=== PATIENT | male | born 1945 | race Caucasian/White ===

== ENCOUNTER 2018-10-23 11:46 | Day surgery (SDC) | payer MEDICARE, OTHER ==
[2018-10-21 11:02] LABS: BASOPHILS # (AUTO) 0.1 X10'3 (0-0.2); EOSINOPHILS # (AUTO) 0.4 X10'3 (0-0.9); EOSINOPHILS % (AUTO) 6.3 % (0-6); HEMOGLOBIN 10.4 g/dl (14.0-17.9); LYMPHOCYTES # (AUTO) 1.3 X10'3 (1.1-4.8); LYMPHOCYTES % (AUTO) 21.5 % (21-51); MEAN CORPUSCULAR HEMOGLOBIN 20.5 PG (27.0-31.0); MEAN CORPUSCULAR HGB CONC 30.7 g/dL (33.0-36.5); MEAN CORPUSCULAR VOLUME 66.7 FL (78-98); MEAN PLATELET VOLUME 8.4 FL (7.4-10.4); MONOCYTES # (AUTO) 0.5 X10'3 (0-0.9); MONOCYTES % (AUTO) 7.6 % (2-12); NEUTROPHILS # (AUTO) 3.8 X10'3 (1.8-7.7); NEUTROPHILS % (AUTO) 63.6 % (42-75); PLATELET COUNT 219 X10'3 (140-440); RED CELL DISTRIBUTION WIDTH 16.3 % (11.5-14.5)
[2018-10-21 11:08] LABS: ALBUMIN 3.2 G/DL (3.4-5.0); ANION GAP 11 (8-16); BLOOD UREA NITROGEN 27 MG/DL (7-18); BUN/CREATININE RATIO 16.4 (5.4-32.0); CALCIUM 8.9 MG/DL (8.5-10.1); CHLORIDE 103 MMOL/L (99-107); CREATININE 1.65 MG/DL (0.60-1.10); GLUCOSE 216 MG/DL (70-104); POTASSIUM 4.4 MMOL/L (3.5-5.1); SODIUM 138 MMOL/L (135-145); TOTAL CARBON DIOXIDE 24.3 MMOL/L (24-32); eGFR 41 ML/MIN
[2018-10-21 11:17] LABS: PARTIAL THROMBOPLASTIN TIME 29 SECONDS (22-32)
[2018-10-21 12:06] LABS: PLATELET ESTIMATE NORMAL
[2018-10-21 12:07] LABS: ANISOCYTOSIS 1+; HYPOCHROMASIA 1+; LARGE PLATELETS FEW; MICROCYTOSIS 2+
[~2018-10-23] VITALS: Ht 172.7 cm; Wt 107.6 kg
[2018-10-23] VITALS (7 sets, daily range): BP systolic 160–175; BP diastolic 81–93
[2018-10-23] MEDS ORDERED: diphenhydrAMINE 25mg capsule PO PRN (12:00)
[2018-10-23] MEDS ORDERED: LORazepam 0.5 MG tablet PO PRN (12:00)
[2018-10-23] MEDS ORDERED: normal saline 1000ml 1,000 ML IV SCH (12:00)
[2018-10-23] MEDS ORDERED: METF500T7 PO (14:03)
[2018-10-23] MEDS ORDERED: FEBU40TA PO (14:03)
[2018-10-23] MEDS ORDERED: METO50TA7 PO (14:03)
[2018-10-23] MEDS ORDERED: HYDR-4069 PO (14:03)
[2018-10-23] MEDS ORDERED: CYAN100097 PO (14:03)
[2018-10-23] MEDS ORDERED: MAGN400T6 PO (14:03)
[2018-10-23] MEDS ORDERED: VALS320T17 PO (14:03)
[2018-10-23] MEDS ORDERED: ISOS30TA10 PO (14:03)
[2018-10-23] MEDS ORDERED: ASPI-1265 PO (14:03)
[2018-10-23] MEDS ORDERED: CHOL10002 PO (14:03)
[2018-10-23] MEDS ORDERED: fentaNYL/PF 50MCG/1 ML 2ML syringe ONE (15:37)
[2018-10-23] MEDS ORDERED: LIDOcaine 1% w/EPI 1:100,000 30ml vial (MDV) ONE (15:38)
[2018-10-23] MEDS ORDERED: midazolam 2 mg/2 ml injection ONE (15:38)
[2018-10-23] MEDS ORDERED: iohexol 350MG/ML 100ml bottle IV ONE (15:38)
[2018-10-23] MEDS ORDERED: LIDOcaine 1% (10mg/ml)w/preservative injection 20ml MDV ONE (15:51)
[2018-10-23] MEDS ORDERED: OXAZEpam 15mg capsule PO PRN (18:00)
[2018-10-23] MEDS ORDERED: ondansetron/PF 4mg/2ml inj IV PRN (18:00)
[2018-10-23] MEDS ORDERED: proCHLORperazine 10 MG/2 ml inj IV PRN (18:00)
[2018-11-08] MEDS ORDERED: METO50TA17 PO (11:33)
[2018-11-13] MEDS ORDERED: ATOR10TA PO (09:08)
== END 2018-10-23 19:50 | disposition home or self-care (01) ==
LOC: SSTAY O 11:46
PROVIDERS: ATTEND Internal Medicine Interventional Cardiology
DX: I25.10 Atherosclerotic heart disease of native coronary artery without angina pectoris (principal); I35.0 Nonrheumatic aortic (valve) stenosis
CPT/HCPCS: 36415; 80048; 82948; 85025; 85610; 85730; 93005; 93460; 99152; 99153; A6257; J1644; J2001; J2250; J3010; J3490; J7030; Q0163; Q9967; A4620; C1760; C1769

== ENCOUNTER 2018-11-07 05:14 | Inpatient (IN) | payer MEDICARE, OTHER | END 2018-11-13 11:55 | disposition home health service (06) | LOC: MED 3N 11-11 16:43 → PAS IN 05:14 → CICU 2S 09:46 | PROC: 0T9B70Z Drainage of Bladder with Drainage Device, Via Natural or Artificial Opening (ICD-10-PCS; principal; 2018-11-07 06:51) | PROC: 02U Heart and Great Vessels, Supplement (ICD-10-PCS; 2018-11-07 06:51) | PROC: 02100A3 Bypass Coronary Artery, One Artery from Coronary Artery with Autologous Arterial Tissue, Open Approach (ICD-10-PCS; 2018-11-07 06:51) | PROC: 0212099 Bypass Coronary Artery, Three Arteries from Left Internal Mammary with Autologous Venous Tissue, Open Approach (ICD-10-PCS; 2018-11-07 06:51) | PROC: 06BQ4ZZ Excision of Left Saphenous Vein, Percutaneous Endoscopic Approach (ICD-10-PCS; 2018-11-07 06:51) | DX: I25.10 Atherosclerotic heart disease of native coronary artery without angina pectoris (principal); N17.0 Acute kidney failure with tubular necrosis; I35.0 Nonrheumatic aortic (valve) stenosis; D56.3 Thalassemia minor ==

== ENCOUNTER 2018-11-26 15:34 | Outpatient (CLI) | payer MEDICARE, OTHER ==
[~2018-11-26 15:34] MED LIST: ASPI-1265 PO; ATOR10TA PO; CHOL10002 PO; CYAN100097 PO; FEBU40TA PO; MAGN400T6 PO; METF500T7 PO; METO50TA17 PO; VALS320T17 PO
[2018-11-26 16:13] LABS: BASOPHILS % (AUTO) 0.6 % (0-1); EOSINOPHILS # (AUTO) 0.2 X10'3 (0-0.9); EOSINOPHILS % (AUTO) 2.2 % (0-6); HEMATOCRIT 29.5 % (42.0-52.0); HEMOGLOBIN 9.4 g/dl (14.0-17.9); LYMPHOCYTES # (AUTO) 1.6 X10'3 (1.1-4.8); LYMPHOCYTES % (AUTO) 21.2 % (21-51); MEAN CORPUSCULAR HEMOGLOBIN 22.8 PG (27.0-31.0); MEAN CORPUSCULAR HGB CONC 31.9 g/dL (33.0-36.5); MEAN CORPUSCULAR VOLUME 71.4 FL (78-98); MONOCYTES # (AUTO) 0.7 X10'3 (0-0.9); MONOCYTES % (AUTO) 8.9 % (2-12); NEUTROPHILS % (AUTO) 67.1 % (42-75); PLATELET COUNT 328 X10'3 (140-440); RED BLOOD COUNT 4.13 X10'6 (4.70-6.10); WHITE BLOOD COUNT 7.5 X10'3 (4.5-11.0)
[2018-11-26 16:21] LABS: ANION GAP 8 (8-16); BLOOD UREA NITROGEN 38 MG/DL (7-18); BUN/CREATININE RATIO 27.5 (5.4-32.0); CALCIUM 9.3 MG/DL (8.5-10.1); CHLORIDE 103 MMOL/L (99-107); CREATININE 1.38 MG/DL (0.60-1.10); GLUCOSE 151 MG/DL (70-104); POTASSIUM 4.5 MMOL/L (3.5-5.1); SODIUM 137 MMOL/L (135-145); TOTAL CARBON DIOXIDE 26.1 MMOL/L (24-32); eGFR 50 ML/MIN
[2018-11-26 16:44] LABS: ANISOCYTOSIS 3+; ELLIPTOCYTES FEW; HYPOCHROMASIA 2+; MICROCYTOSIS 1+; PLATELET ESTIMATE NORMAL; SCHISTOCYTES FEW
[2018-11-26 16:45] LABS: POIKILOCYTOSIS 1+; POLYCHROMASIA FEW; TARGET CELLS FEW; TEAR DROP CELLS FEW
== END 2018-11-26 23:59 | disposition home or self-care (01) ==
LOC: LAB 15:34
PROVIDERS: ATTEND Thoracic Surgery (Cardiothoracic Vascular Surgery)
DX: D56.3 Thalassemia minor (principal); Z95.4 Presence of other heart-valve replacement
CPT/HCPCS: 36415; 80048; 85025